=== PATIENT | female | born 2005 | race Caucasian/White ===

== ENCOUNTER 2024-02-28 12:08 | Emergency (ER) | payer OTHER, SELFPAY ==
[2024-02-28 12:11] VITALS: BP 121/75; PULSE 76; TEMP 36.5; O2SAT 97
[2024-02-28 12:14] VITALS: BP 121/75; PULSE 76; TEMP 36.5; O2SAT 97
[2024-02-28 13:35] VITALS: BP 106/63; PULSE 77; RESP 16; O2SAT 98
--- NOTE | 2024-02-28 13:36 | ED.GENADUL_ITS ---
Discharge Plan Disposition Patient Disposition: Home Condition: Good Discharge Details Clinical Impression: Strep pharyngitis, Enlarged tonsils Primary Care Provider: Liza,Local ED Provider: Juliana Nolasco Home Meds and New Rx's Prescriptions: Continued penicillin V potassium 500 mg tablet 500 mg PO Q8H Discharge Instructions Instructions: Sore Throat, Adult ED Additional Instructions: As we discussed, the steroid you are on as well as the antibiotics sound to be appropriate. Referral to ENT has been placed. There are numbers listed below, I encourage you to call to schedule follow-up appointment. I spoke with Dr. Newsome today who advised that you may need a tonsillectomy moving forward. If you develop difficulty breathing, shortness of breath or new/worsening symptom please seek care urgently once again. Referrals: Som Newsome MD [ [facility] STAFF PHYSICIAN] - Discharge Data Discharge Date/Time-TO BE ENTERED AT DEPARTURE: 02/28/24 15:19 HPI General Date/Time Provider Initiated Documentation: 02/28/24 12:16 . Limitations to Documentation: no limitations . Information obtained by: patient and RN notes reviewed . History of Present Illness 18 year old F presents to the emergency department with the chief complaint of Tonsillar swelling, sore throat, described as moderate and similar to prior episodes, Quality is described as burning and aching, and is localized to the mouth. Patient reports no radiation. Patient started experiencing this month(s) and it has been intermittent. No relieving factors improve symptom(s), No exacerbating factors reported . Patient notes no other symptoms.. Patient did receive the following treatments prior to arrival, other (Antibiotics and steroids) Related Data Home Medications ?Medication ?Instructions ?Recorded ?Confirmed penicillin V potassium 500 mg 500 mg PO Q8H 02/28/24 02/28/24 tablet Allergies Allergy/AdvReac Type Severity Reaction Status Date / Time cephalexin Allergy Intermediate Skin Rash Verified 02/28/24 12:14 General Stated Complaint: RespSymp KHOA: 4 Review of Systems Constitutional Constitutional: Reports as per HPI and Denies headache(s) Eyes Eyes: Reports as per HPI, Denies eye discharge and Denies irritation ENT Ears, Nose, Mouth, and Throat: Reports as per HPI and Denies headache(s) Cardiovascular Cardiovascular: Reports as per HPI, Denies chest pain and Denies dyspnea Respiratory Respiratory: Reports as per HPI and Denies dyspnea Gastrointestinal Gastrointestinal: Reports as per HPI, Denies abdominal pain, Denies change in bowel habits, Denies nausea and Denies vomiting Integumentary/Breasts Skin/Breast: Reports as per HPI and Denies rash Neurologic Neurologic: Reports as per HPI and Denies headache(s) Exam Const General: cooperative, healthy appearing, comfortable, no acute distress, well developed and well groomed Nutritional Appearance: average body habitus and well nourished Orientation: alert and awake [facility] Head: normal to inspection, normocephalic and atraumatic Ears: hearing grossly normal bilaterally General nose exam: external nose normal and nares normal Face and sinus: normal facial exam, sinuses nontender and face symmetric Mouth: oral mucosae normal, lip normal, tongue normal, oropharynx normal and moist mucous membranes Teeth and gingiva: dentition normal Throat: uvula midline, abnormal tonsil bilaterally hypertrophy and no peritonsillar masses Eyes General: appearance normal, both eyes and all related structures Neck Neck: normal visual inspection, full ROM, no lymphadenopathy and no meningeal signs Resp Effort & Inspection: normal respiratory effort, able to speak in complete sentences and no respiratory distress Cardio Rate: regular rate Rhythm: regular rhythm Skin General skin exam: no rashes or lesions noted Neuro General: patient alert and patient awake Cognition: normal cognition Speech: speech normal Gait: normal gait Course Vital Signs Vital signs: Vital Signs Temperature 36.5 C 02/28/24 12:11 Pulse 76 02/28/24 12:11 Blood Pressure 121/75 02/28/24 12:11 Pulse Oximetry 97 02/28/24 12:11 Temperature 36.5 C 02/28/24 12:14 Temperature Source Oral 02/28/24 12:14 Pulse 77 02/28/24 13:35 Respiratory Rate 16 02/28/24 13:35 Respiratory Effort Normal, Non-Labored 02/28/24 13:35 Respiratory Depth Normal 02/28/24 13:35 Respiratory Pattern Normal 02/28/24 13:35 Blood Pressure 106/63 02/28/24 13:35 Blood Pressure Mean 77 02/28/24 13:35 Blood Pressure Position Sitting 02/28/24 13:35 Pulse Oximetry 98 02/28/24 13:35 Oxygen Delivery Method Room Air 02/28/24 12:14 Oxygen Flow Rate 0 02/28/24 12:14 Medical Decision Making Patient is a pleasant 18-year-old female presented with chief complaint of sore throat. She reports that she has had issues with sore throat for the past 2 years since having mono. Was recently diagnosed with strep. Has been taking antibiotics and steroids. She reports she has been taking steroids intermittently for the past month, reports that she has been using these most days actually. They have been prescribed to her ENT provider. Sees ENT in [place]. She reports that she has requested to have a tonsillectomy given the recurrent symptoms and that this is not limiting her ability to play sports and engage in school the way she typically does, however they have been hesitant to do so per patient report. Patient is here today really seeking ENT evaluation for possible tonsillectomy given the continued enlarged tonsils and how this they are affecting her ability to perform. She reports that she has been having some difficulty breathing when her mouth is open or she straightened very hard. She has pain with swallowing although she is able to do so. She has not taking the steroids and antibiotics as prescribed. On exam, patient appears nontoxic. She is hemodynamically stable. She does have quite large tonsils. However, she does not appear acutely ill. This sounds to be a very prolonged illness for her, showing potential use. She has no significant lymphadenopathy. Her uvula is midline. No evidence to suggest a peritonsillar abscess or deep space infection extending to the neck. As the patient has been continuing on steroids and antibiotics and yet still having swelling, will consult with ENT to see if they have any further recommendations. Consulted with Dr. Newsome reviewed the case. While he does agree with the patient's want having a tonsillectomy, he is concerned that having it while she is living in a dorm room may not be most appropriate that she may benefit from having the procedure completed at home so that she is able to recover with family. While he is happy to see the patient, he encourages she speak with her ENT in [place] once again as this would be the best physical position for her to begin for continued management and postoperative status. discussed this with the patient. She would prefer to have follow-up here with our ENT specialist and would prefer to not have the surgery completed at home. Referral placed. She will cotninue to encourage hydration, continue with abx and steroids until complete. She will also continue to encourage hydraiton and with supportive care. No indication at this time for emergent complication such as peritonsillar abscess, Jf's, abscess. Strict return precautions were discussed. All of her questions and concerns were addressed and the patient is in agreement this plan. This documentation was generated using [employer] dictation system, please disregard any oddities of phrase or misspellings. Quality:SDOH Health Related Social Needs: No Data to Display PFSH All Active Problems (Updated 02/28/24 @ 14:37 by CHENG Terry) Enlarged tonsils (Acute) Strep pharyngitis (Acute) Social History Smoking/Tobacco Use Status: Never Smoking risk assessment performed?: Yes Alcohol Intake: never Drug use: Never Substance use type: does not use Do you feel safe at home: Yes Do you feel safe in your relationship?: Yes
== END 2024-02-28 15:19 | disposition home or self-care (01) ==
PROVIDERS: Emergency Provider Physician Assistant; Referring Provider Student in an Organized Health Care Education/Training Program
DX: J02.0 Streptococcal pharyngitis (principal); J35.1 Hypertrophy of tonsils
CPT/HCPCS: 87880; 99283

== ENCOUNTER 2024-03-04 20:40 | Emergency (ER) | payer OTHER, SELFPAY ==
--- NOTE | 2024-03-04 20:30 | RT.EKG_ITS ---
APPROVED REPORT Exam: Resting ECG Reason for Exam: chest pain Patient Location: E HR:67 bpm ECG Measurements Heart Rate 67 AXIS UT 144 P 54 QRSd 82 QRS 72 QT 415 T 50 QTc 437 Conclusion Sinus arrhythmia...V-rate 55- 75, variation>10% Atrial premature complex...SV complex w/ short R-R interval I have reviewed and interpreted ECG and agree with software generated interpretation.
[2024-03-04 20:49] VITALS: BP 112/61; PULSE 69; RESP 16; TEMP 36.4; O2SAT 96
--- NOTE | 2024-03-04 21:35 | W.ED.GENAD ---
Discharge Plan Disposition Patient Disposition: Home Condition: Good Discharge Details Clinical Impression: Chest pain due to GERD Primary Care Provider: Liza,Local ED Provider: Miguel A Petit Home Meds and New Rx's Prescriptions: New amoxicillin-pot clavulanate 875-125 mg tablet 1 tab PO BID 7 Days Qty: 14 0RF prednisone 20 mg tablet 20 mg PO DAILY Qty: 42 0RF Rx Instructions: Take 3 tablets daily for 7 days, followed by 2 tablets daily for 7 days, followed by 1 tablet daily for 7 days. pantoprazole [Protonix] 40 mg tablet,delayed release (DR/EC) 40 mg PO DAILY Qty: 30 0RF Discontinued penicillin V potassium 500 mg tablet 500 mg PO Q8H No Action dexmethylphenidate [Focalin XR] 25 mg capsule,ER biphasic 50-50 25 mg PO DAILY Discharge Instructions Instructions: Tonsillectomy, Acid reflux and GERD in adults Additional Instructions: At this time we will continue your course of steroids. We will transition your antibiotic to Augmentin. Additionally out of concern for reflux we recommend taking Tums, Pepto-Bismol or Maalox regularly to help combat this. We will be starting you on Protonix which help reduce irritation in your stomach. Please follow-up closely with Dr. Newsome to see if there is a possibility for expediting your surgical date. For Tylenol and Motrin, you can take 1000 mg of Tylenol every 6 hours and 800 mg of Motrin every 6 hours. These are the maximum doses. If you notice any worsening of your symptoms, or any new symptoms such as vomiting, diarrhea, fever, chills, shortness of breath, chest pain, numbness, weakness, or fainting , please return immediately to the emergency department for reevaluation. Please follow up with your primary care provider as soon as possible for reassessment and reevaluation. As always, it was a pleasure participating in your medical care today. Referrals: Som Newsome MD [ [facility] STAFF PHYSICIAN] - [facility] General Date/Time Provider Initiated Documentation: 03/04/24 21:28. HPI Narrative: 18-year-old female with a past medical history of chronically enlarged tonsils, who is scheduled to have surgery on 13 March for removal of the tonsils, presents today for burning in the chest, and continued swollen tonsils. Of note, patient states that she has had tonsils for months. She most recently has been on prednisone 50 mg for 5 days, today was her last day. She went to an urgent care a few days ago and was started on penicillin. She was strep positive on swab. She was also mono positive, but she had mono a few years ago and this is likely secondary to that. She was at [facility] just yesterday, was seen and evaluated, [facility] ENT was consulted who recommended transitioning from penicillin to Unasyn, a burst of steroids, and then close follow-up for surgical management outpatient. She states that she has been doing well since discharge yesterday, however tonight she had an episode where her tonsils felt swollen and she had a harder time swallowing. This resolved by the time she got to the ER. She takes 200 mg of ibuprofen and 500 mg of Tylenol alternating between the 2 every 6 hours. Additionally she presents tonight because she has burning in her chest. No exertional dyspnea. Denies PE risk factors such as recent long car rides, immobilization, recent surgery, prior history of DVT or PE, family history of PE or DVT, morbid obesity, exogenous estrogen and smoking, hemoptysis, history of cancer. No known cardiac disease or personal history of cardiac disease. No other complaints at this time. Related Data Home Medications ?Medication ?Instructions ?Recorded ?Confirmed dexmethylphenidate 25 mg 25 mg PO DAILY 02/29/24 03/04/24 capsule,extended release [id number] (Focalin XR) amoxicillin 875 mg-potassium 1 tab PO BID 7 days #14 tabs 03/04/24 clavulanate 125 mg tablet pantoprazole 40 mg tablet,delayed 40 mg PO DAILY #30 tabs 03/04/24 release (Protonix) prednisone 20 mg tablet 20 mg PO DAILY #42 tabs 03/04/24 Previous Rx's ?Medication ?Instructions ?Recorded amoxicillin 875 mg-potassium 1 tab PO BID 7 days #14 tabs 03/04/24 clavulanate 125 mg tablet pantoprazole 40 mg tablet,delayed 40 mg PO DAILY #30 tabs 03/04/24 release (Protonix) prednisone 20 mg tablet 20 mg PO DAILY #42 tabs 03/04/24 Allergies Allergy/AdvReac Type Severity Reaction Status Date / Time cephalexin Allergy Intermediate Skin Rash Verified 03/04/24 20:59 red dye Allergy Unknown Verified 03/04/24 20:59 General Stated Complaint: Sorethroat KHOA: 4 Review of Systems All systems reviewed & are unremarkable except as noted in HPI and below Exam Narrative Exam Narrative: 1.Const: Well-nourished, Well-developed, appearing stated age 2.Eyes: PERRL, no conjunctival injection, and symmetrical lids. 3.ENT: Atraumatic external nose and ears. Moist MM. Neck: Symmetric, trachea midline, No thyromegaly. No cervical lymphadenopathy. Tonsils are currently grade 3+ to 4. No hot potato voice. No drooling. No stridor. No evidence of Ludewig's angina 4.CVS: +S1/S2, Peripheral pulses 2+ and equal in all extremities. Brisk capillary refill in all extremities. 5.RESP: Unlabored respiratory effort. Clear to auscultation bilaterally. No wheezes rales or rhonchi 6.GI: Soft, Nontender/Nondistended, No hepatosplenomegaly. No guarding or rebound. 7.MSK: Normocephalic/Atraumatic, Extremities w/o deformity or ttp No cyanosis or clubbing, Normal movement of all extremities 8.Skin: Warm, Dry. No rashes or lesions. 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 Sensation grossly intact, no focal neurologic deficits. 10.Psych: (AAO) x3. Appropriate mood and affect Course Vital Signs Vital signs: Vital Signs Temperature 36.4 C 03/04/24 20:49 Pulse 69 03/04/24 20:49 Respiratory Rate 16 03/04/24 20:49 Blood Pressure 112/61 03/04/24 20:49 Pulse Oximetry 96 03/04/24 20:49 Temperature 36.4 C 03/04/24 20:49 Temperature Source Oral 03/04/24 20:49 Pulse 69 03/04/24 20:49 Respiratory Rate 16 03/04/24 20:49 Respiratory Effort Normal 03/04/24 21:00 Blood Pressure 112/61 03/04/24 20:49 Blood Pressure Position Sitting 03/04/24 20:49 Pulse Oximetry 96 03/04/24 20:49 Oxygen Delivery Method Room Air 03/04/24 20:49 Oxygen Flow Rate 0 03/04/24 20:49 Pain Level 6 03/04/24 20:49 Medical Decision Making 18-year-old female with a past medical history of chronically enlarged tonsils, who is scheduled to have surgery on 13 March for removal of the tonsils, presents today for burning in the chest, and continued swollen tonsils. Of note, patient states that she has had tonsils for months. She most recently has been on prednisone 50 mg for 5 days, today was her last day. She went to an urgent care a few days ago and was started on penicillin. She was strep positive on swab. She was also mono positive, but she had mono a few years ago and this is likely secondary to that. She was at [facility] just yesterday, was seen and evaluated, [facility] ENT was consulted who recommended transitioning from penicillin to Unasyn, a burst of steroids, and then close follow-up for surgical management outpatient. She states that she has been doing well since discharge yesterday, however tonight she had an episode where her tonsils felt swollen and she had a harder time swallowing. This resolved by the time she got to the ER. She takes 200 mg of ibuprofen and 500 mg of Tylenol alternating between the 2 every 6 hours. Additionally she presents tonight because she has burning in her chest. No exertional dyspnea. Denies PE risk factors such as recent long car rides, immobilization, recent surgery, prior history of DVT or PE, family history of PE or DVT, morbid obesity, exogenous estrogen and smoking, hemoptysis, history of cancer. No known cardiac disease or personal history of cardiac disease. No other complaints at this time. Exam demonstrates grade 3+ to 4 tonsils, no stridor, no drooling, no hot potato voice. No signs of respiratory distress stridor Ludewig's angina or any other concerning etiologies or abnormalities. Tonsils are enlarged but certainly no evidence of needed emergent surgical intervention. These intermittent episodes, as well as the patient's multiple emergent evaluations over the last week certainly increases the concern that this does need continued nonemergent surgical management but hopefully sooner rather than later. Today was her last day of steroids, and I do feel that cessation of steroids might be certainly complicating especially as she still had continued episodes even while on steroids. We will do a continued course with a taper as she has had the 50 mg burst. She states that she felt there was notable improvement after the Unasyn treatment that she received at [facility] with multiple doses there. We will transition her to Augmentin until she is able to follow-up with ENT. I do not see evidence of a severe active infection, but with these repeat episodes I do feel that additional caution is indicated at this time. I had a long discussion with the patient regarding red flags which would merit prompt return and that could represent the need for emergent surgical intervention and she understands. Additionally we gave a GI cocktail which certainly improved the patient's GERD like symptoms. Symptoms are inconsistent with ACS. EKG benign. Symptoms inconsistent with PE clinically. Patient will be discharged home. I have extensively reviewed the treatment plan and discharge instructions with the patient. I have addressed all patient concerns at this time. The patient was made aware of what symptoms to monitor for that would warrant a return to the emergency department. Discussed the plan with the patient, they demonstrate verbal understanding and agreement with our assessment and plan at this time. The documentation in this chart was dictated using [employer] dictation software. Please excuse any dictation errors. Quality:SDOH Health Related Social Needs: No Data to Display PFSH All Active Problems Chest pain due to GERD (Acute) Enlarged tonsils (Acute) Strep pharyngitis (Acute) Surgical History H/O adenoidectomy In [place] Social History Smoking/Tobacco Use Status: Never Smoking risk assessment performed?: Yes Alcohol Intake: never Drug use: Never Substance use type: does not use Do you feel safe at home: Yes Do you feel safe in your relationship?: Yes
[2024-03-04] MEDS: Amox. 875/Clav. 125, 2 TABS/BTL 1 TAB PO (21:36)
== END 2024-03-04 21:49 | disposition home or self-care (01) ==
PROVIDERS: Emergency Provider Student in an Organized Health Care Education/Training Program
DX: K21.9 Gastro-esophageal reflux disease without esophagitis (principal); J35.1 Hypertrophy of tonsils
CPT/HCPCS: 93005; 99283; 93010; 99284

== ENCOUNTER 2024-03-13 06:18 | Day surgery (SDC) | payer OTHER, SELFPAY ==
[2024-03-13] VITALS (29 sets, daily range): BP systolic 106–131; BP diastolic 45–87; PULSE 46–76; RESP 11–22; TEMP 36.3–36.6; O2SAT 94–100; BMI 27.5
--- NOTE | 2024-03-13 06:27 | ANES.PREOP_ITS ---
General Info Date of Service Date Performed: 03/13/24 Height: 5 ft 7 in Weight: 79.8 kg Body Mass Index (BMI): 27.5 Surgical Procedure: Operation Date: 03/13/24 07:40 Proposed Procedure Side Surgeon p Tonsillectomy & Adenoidectomy Som Newsome MD Meds Allergies and Home Medications Allergies Allergy/AdvReac Type Severity Reaction Status Date / Time cephalexin Allergy Intermediate Skin Rash Verified 03/13/24 06:44 red dye Allergy Skin Rash Verified 03/13/24 06:44 Home Medication ?Medication ?Instructions ?Recorded dexmethylphenidate 25 mg 25 mg PO DAILY 02/29/24 capsule,extended release [id number] (Focalin XR) pantoprazole 40 mg tablet,delayed 40 mg PO DAILY #30 tabs 03/04/24 release (Protonix) Current Visit Medications: Current Medications Generic Name Dose Route Start Last Admin Trade Name Freq PRN Reason Stop Dose Admin Ringer's Solution 1,000 mls @ 75 mls/hr 03/13/24 06:00 IV 03/13/24 23:59 INFUSION CARIE Tranexamic Acid/Sodium Chloride 1,000 mg in 100 mls @ 600 mls/hr 03/13/24 06:00 IVPB 03/13/24 23:59 PREOP CARIE Clindamycin Phosphate/Dextrose 900 mg in 50 mls @ 50 mls/hr 03/13/24 06:00 Cleocin In D5w IVPB 03/13/24 23:59 PREOP CARIE IV Miscellaneous Supplies 1 each 03/13/24 06:00 Iv Access IV 03/13/24 23:59 DIRECTED CARIE Sodium Chloride 0 ml 03/13/24 06:00 Normal Saline Flush 10 Ml Syr IV 03/13/24 23:59 PRN PRN Sodium Chloride 0 ml 03/13/24 06:00 Normal Saline 10 Ml Vial IJ 03/13/24 23:59 DIRECTED PRN Sterile Water 0 ml 03/13/24 06:00 Water,Injection,Sterile 10 Ml Vial IJ 03/13/24 23:59 DIRECTED PRN PFSH Active Problems Active Problems: Problem Status Onset Code Chest pain due to GERD Acute K21.9, R07.9 Enlarged tonsils Acute J35.1 Strep pharyngitis Acute J02.0 Surgical History Surgical History Hx of knee surgery x2 H/O adenoidectomy In [place] Tobacco Smoking/Tobacco Use Status: Never Alcohol Alcohol Intake: never Substance Use Substance use: Never Substance use type: does not use Vital Signs and Lab Results Vital Signs Most Recent Vital Signs in EMR: Temp Pulse Resp BP Pulse Ox 36.6 C 54 L 16 115/68 98 03/13/24 06:25 03/13/24 06:25 03/13/24 06:25 03/13/24 06:25 03/13/24 06:25 Lab Results Blood Type / Crossmatch: No Data to Display Complete Blood Count: No Data to Display Complete Metabolic Panel: No Data to Display Liver Function Panel: No Data to Display Coagulation Panel: No Data to Display Cardiac Panel: No Data to Display Arterial Blood Gas: No Data to Display Venous Blood Gas: No Data to Display Pancreas Panel: No Data to Display Thyroid Panel: No Data to Display Infectious Disease: No Data to Display Blood Cultures: No Data to Display Toxicology Panel: No Data to Display Panel: No Data to Display Anesthesia Assessment and Plan Anesthesia History Personal History: No History of Anesthesia Complications Family History: No Family History of Anesthesia Complications Exercise Tolerance Exercise Tolerance: Metabolic Equivalents>4 Cardiac & Pulmonary Exam Cardiac Exam: Normal S1/S2 Heart Sounds Pulmonary Exam: Clear Bilateral Breath Sounds Implantable Cardiac Device Does patient have a Pacemaker or an ICD?: No Airway Exam Known Difficult Airway: No Mallampati Class: 3 Mouth Opening: Normal (> 3cm) Thyromental Distance: Greater than 3 cm Neck Range of Motion: Full ROM Neck Circumference: Normal Teeth Condition: Normal Dentition ASA Classification ASA Score: ASA 2 Emergency Case?: No NPO Status NPO Status: NPO Clears >2 hours, Solids >8 hours Status Status: Negative HCG Anesthesia Plan Resuscitation Status: Full Code Anesthesia Technique: General Anesthesia Airway Planned: Endotracheal Tube Monitors Used: Standard Monitors Preoperative Comments:: 18 yo female for tonsillectomy. Recent ER visit for them, antibiotics and oral steroid given. Sig PMHx: RAD (albuterol with exertion), GERD (not an issue), ADHD (dexmethylphenidate), never smoker. EKG: sinus, PACs.
--- NOTE | 2024-03-13 06:54 | PDOC.DSDIS_ITS ---
Date of service: 03/13/24 Time of Service: 06:56 Discharge Plan Disposition Patient Disposition: Home Condition: Good Discharge Details Reason For Visit: Tonsillectomy Attending Provider: Som Newsome Primary Care Provider: No,Local Home Meds and New Rx's Prescriptions: No Action dexmethylphenidate [Focalin XR] 25 mg capsule,ER biphasic 50-50 25 mg PO DAILY pantoprazole [Protonix] 40 mg tablet,delayed release (DR/EC) 40 mg PO DAILY Qty: 30 0RF Patient Comments: Pt states not taking Discharge Instructions Additional Instructions: My cell phone number is [phone]. Please call with any questions or concerns. 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 She may return to sports without restriction on 03/27/2024. Stand Alone Forms: ENT- T&A InstrDavid Newsome Referrals: Som Newsome MD [ [facility] STAFF PHYSICIAN] - (1 month, please call for appointment prior to patient's departure if the appointment is already not made) Discharge Orders Discharge Orders: Discharge Order (Routine); Ordered 03/13/24 Ordered By: Som Newsome
--- NOTE | 2024-03-13 06:56 | W.PM.OP ---
Date of service: 03/13/24 Time of Service: 08:22 Operative Note Operative Note DATE OF PROCEDURE: 03/13/24 PRE-OP DIAGNOSIS: Chronic tonsillitis, tonsillar hypertrophy POST-OP DIAGNOSIS: same PROCEDURE: Tonsillectomy SURGEON: Som Newsome ANESTHESIA TYPE: General LMA/ETT Refer to Anesthesia Record ESTIMATED BLOOD LOSS: 20 PATHOLOGY: other (Tonsils) COMPLICATIONS: None Patient was transported to: PACU Patient's condition: stable Indications: Patient with chronic tonsillitis and tonsillar hypertrophy with obstructive symptoms. Options were explained to the family regarding further management. They elected to undergo the above procedure. Consent was filled out and signed prior to the procedure. H&P was completed. H&P was reviewed. All questions were answered. Risks of narcotics were reviewed. They still wish to proceed. Findings: 4+ tonsils, atrophic adenoids, palate intact to inspection and palpation Procedure Description: After obtaining an adequate level of general endotracheal anesthesia the patient was positioned in the supine position and prepped and draped in appropriate fashion. A Yadiel Catracho mouthgag was carefully introduced into the oral cavity and opened revealed a soft and hard palate which were examined revealing no overt evidence of an occult cleft palate. He each tonsil was pulled medially and posteriorly and 0.5% Marcaine with 1/100,000 epinephrine was injected in the submucosal plane around each tonsil. A 12 blade was then used to incise mucosa along superior edge of each tonsil and a Jarad elevator used to disarticulate the tonsil from the superior tonsillar fossa. A Diamond blade was then used to carefully strip the tonsil free from the tonsillar fossa down to the inferior pole at which point in time a tonsillar snare was used to amputate the tonsil from the tonsillar fossa. Following this, electrocautery suction tip catheter was set on 15 W coagulation was used to achieve hemostasis within the tonsillar beds. Once been accomplished, Valsalva was performed revealing no further bleeding. Cardiovis mouthgag was relaxed and reopened revealing no further bleeding. Cardiovis mouthgag was relaxed and removed revealing no damage to the dentition and the patient was awakened and extubated by anesthesia and taken the recovery room in stable condition. I was present throughout the entire case.
[2024-03-13] MEDS: Lactated Ringers 500 ML 30 ML IV (07:00)
[2024-03-13] MEDS: CLINDAMYCIN 900 MG/50 ML BAG 50 MG IVPB (07:06)
[2024-03-13] MEDS: TRANEXAMIC ACID/SOD. CHL. 1,000 MG/100 ML BAG 600 MG IVPB (07:22)
[2024-03-13] MEDS: Bupivacaine 0.5% Pres-Free W/EPI 30 ML VIAL (07:36)
--- NOTE | 2024-03-13 07:45 | TONSIL_PTH ---
PATIENT: Cornelio Quintanilla LOC: [facility] U#:[id number] AGE/SX: 18/F ROOM: RE03/13/[address]: Som Newsome MD : 2005 BED: DIS: 03/13/2024 SPEC #: [id number] RECD: 03/13/24 12:44 STATUS: BETHANY REQ #: [id number] REGINO: 03/13/24 07:[address]: Som Newsome DEPT: Surgical Specimen RECD BY: Oriana Evans ENTERED: 03/13/24 12:46 SP TYPE: TONSIL OTHR DR: No Local Tissues: 1 - TONSIL AGE 17 & OVER 2 - TONSIL AGE 17 & OVER Procedures: GROSS AND MICRO LEVEL 3 Comments: [id number]
--- NOTE | 2024-03-13 08:45 | W.ANESPOSTOP ---
Postoperative Evaluation Date, Time and Location Date Performed: 03/13/24 Time Performed: 08:45 Patient Location: PACU Vital Signs Most Recent Imported Vital Signs: Most Recent Vital Signs Temp Pulse Resp BP Pulse Ox 36.4 C L 59 L 12 122/76 100 03/13/24 08:38 03/13/24 08:36 03/13/24 08:36 03/13/24 08:36 03/13/24 08:36 Pain Score Most Recent Pain Score: Most Recent Pain Score Pain Level 0 03/13/24 08:38 Assessment Mental Status: Arousable with meaningful communication Airway and Respiratory Function: Patent airway with normal (patient baseline) respiratory exam Cardiovascular Function: Hemodynamically Stable Hydration Status: Adequately Hydrated Nausea & Vomiting: No Nausea or Vomiting Pain: Pain is tolerable per patient Peripheral Nerve Block: Patient did not receive a nerve block
[2024-03-13] MEDS: Ibuprofen 100 MG/5 ML CUP 400 MG PO (11:36)
== END 2024-03-13 11:50 | disposition home or self-care (01) ==
PROVIDERS: Visit Provider Otolaryngology
PROC: (CPT 42826; principal; 2024-03-13 07:30)
DX: J35.1 Hypertrophy of tonsils (principal)
CPT/HCPCS: 42826; 81025; 88304; J0131; J0737; J1100; J2250; J2405; J2704; J3010

== ENCOUNTER 2024-04-26 09:48 | Emergency (ER) | payer OTHER, SELFPAY ==
[2024-04-26 09:47] VITALS: BP 157/105; PULSE 63; RESP 16; TEMP 36.5; O2SAT 98
--- OUTSIDE RECORDS SUMMARY | 2024-04-26 10:12 | XMS_ITS | Encounter Summary ---
Author Organization [facility] Address [address] [place] [address] Care Team Providers Care Custom Decorating Consultant Name Role Phone Unknown, Provider Primary Care Provider Unava ilable Encounter Details Date Type Department Care Team (Late st Contact Info) Description 03/04/2024 Lab Requisition [facility] Pathology & Laboratory Medicine - [facility] [address] [place] [address] Outr Resulting Lab, Provider Social History Tobacco Use Types Packs/Day Years Used Date Smoking Tobacco: Never Assessed Comments Unknown Sex and Gender Information Value Date Recorded Sex Assigned at Not on file Legal Sex Female 12:15 EDT Gender Identity Not on file Sexual Orientation Not on file documented as of this encounter Plan of Treatment Not on file documented as of this encounter Procedures Procedure Name Priority Date/Time Associated Diagnosis Comments AL-HARPER PANEL Routine 03/03/2024 17 :59 EDT documented in this encounter Results * (ABNORMAL) AL-HARPER PANEL (03/03/2024 17:59 EDT) EBV VCA IgM, Antibody Negative Negative 03/07/2024 10:23 EDT [facility] Comment:Absence of detectabl e VCA IgM antibodies. EBV VCA IgG, Antibody Positive(A) Negative 03/07/2024 10:23 [facility] Comment:Presence of detectab le VCA IgG antibodies. EBNA IgG Antibody Positive(A) Negative 2023 10:23 [facility] Comment:Presence of detectab le EBNA IgG antibodies. EBV Interpretation Results would indicate past infection with Al-Harper virus 03/07/2024 10:23 [facility] Blood VENOUS BLOOD / Unknown 03/03/2024 17:59 EDT 03/05/2024 22:07 EDT us Provider Outr Resulting Lab IMMUNOLOGY AND SEROL OGY ORDERABLES Final Result [facility] [address] [place] [id number] documented in this encounter Visit Diagnoses Not on filedocumented in this encounter Care Teams Custom Decorating Consultant Relationship Specialty Start Date End Date Unknown, Provider, PCP - General 02/07/24 documented as of this encounter
--- OUTSIDE RECORDS SUMMARY | 2024-04-26 10:12 | XMS_ITS | Encounter Summary ---
Author Organization [facility] Address [address] [place] [address] Care Team Providers Care Bush Hog Operator Name Role Phone Unknown, Provider Primary Care Provider Unava ilable Encounter Details Date Type Department Care Team (Late st Contact Info) Description 03/14/2024 Lab Requisition [facility] Pathology & Laboratory Medicine - [facility] [address] [place] [address] Som Newsome MD [address] [place] [address] [phone] Encounter for other general examination Social History Tobacco Use Types Packs/Day Years [...] Procedure Name Priority Date/Time Associated Diagnosis Comments SURGICAL PATHOLOGY Today 03/13/2024 7: 45 EST Encounter for other general examination documented in this encounter Results * SURGICAL PATHOLOGY (03/13/2024 7:45 EST) Note to Patient The following pathology results have been interpreted by your pathologist and may be available to you before your health provider has had the opportunity to review them. Please allow time for your provider to receive these results and explore management options, if applicable. 03/16/2024 8:45 EST [facility] Final Diagnosis A. TONSIL, RIGHT, TONSILECTOMY: - Tonsil with reactive follicular hyperplasia. B. TONSIL, LEFT, TONSILECTOMY: - Tonsil with reactive follicular hyperplasia. 03/16/2024 8:45 EST [facility] Attestation By the signature below, the attending physician certifies that they have 1) personally conducted a gross and/or microscopic examination of the described specimen(s), and/or personally interpreted the results of laboratory testing of the described specimen(s), and 2) personally rendered or confirmed the above diagnosis. 03/16/2024 8:45 [facility] at 0845 Clinical History Enlarged tonsils 03/16/2024 8:45 [facility] Gross Description A. Received in formalin labelled with proper patient identification (initials W, R) and tonsil, right is a 3.6 x 2.4 x 1.6 cm ovoid palatine tonsil. The mucosal surface is smooth and pink-ware. Sectioning reveals lobulated, ware cut surfaces. No obvious masses identified. One scheduling representative section is submitted in A1. B. Received in formalin labelled with proper patient identification (initials W, R) and left tonsil is a 3.8 x 3.2 x 1.4 cm irregular palatine tonsil. The mucosal surface smooth and ware-white. Sectioning reveals a lobulated, ware cut surfaces. No obvious masses identified. One scheduling representative section is submitted in B1. CHENG QUIÑONEZ(ASCP) 03/14/2024 10:00 03/16/2024 8:45 [facility] Performing Lab [facility] 03/16/2024 8:45 [facility] Scanned Images 03/16/2024 8:45 [facility] Tissue SPECIMEN FROM TONSIL / Unknown 03/13/2024 7:45 EST 03/14/2024 9:00 EST Tissue specimen (specimen) SPECIMEN FROM TONSIL / Unknown 03/13/2024 7:45 EST 03/14/2024 9:00 EST us Som Newsome MD PATHOLOGY ORDERABLES Final Resul t [facility] [address] [place] [address] [phone] documented in this encounter Visit Diagnoses Diagnosis Encounter for other general examination documented in this encounter Care Teams Bush Hog Operator Relationship Specialty Start Date End Date Unknown, Provider, PCP - General 02/07/24 documented as of this encounter
--- OUTSIDE RECORDS SUMMARY | 2024-04-26 10:12 | XMS_ITS | Continuity of Care Document ---
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 Name Role Phone Outside, Provider Primary Care Physician Encounter [facility] Date(s): 03/03/24 - 03/04/[address] [address] Encounter Diagnosis Airway obstruction(Discharge Diagnosis) - 03/03/24 Strep pharyngitis(Discharge Diagnosis) - 03/03/24 Enlarged tonsils(Discharge Diagnosis) - 03/04/24 Monospot test positive(Discharge Diagnosis) - 03/04/24 ADHD(Discharge Diagnosis) - 03/03/24 Discharge Disposition: Home or Self Care Attending Physician: Alfie Curran DO Admitting Physician: Scott Sandra PA-C Allergies, Adverse Reactions, Alerts Substance Criticality Severity Reaction Reaction Severity Status Keflex Unable to assess criticality Unknown Active Assessment and Plan Extracted from: Title:Discharge Note Author:Alfie Curran DO Date:03/04/24 Discharge Plan 1.??Airway obstruction??J98.8 2.??Strep pharyngitis??J02.0 3.??Enlarged tonsils??J35.1 4.??Monospot test positive??B27.90 5.??ADHD??F90.9 Orders: Diet Order, 03/04/24 7:37:00 EDT, Custom (See Special Instructions), soft diet Alexandria-Harper Virus Profile, S SALAZAR, Blood, Add On, 03/04/24 8:20:00 EDT, Once, Lab Collect Procalcitonin, Blood, Add On, 03/04/24 9:12:00 EDT, Once, Lab Collect Follow Up With When Contact Information Follow up with primary care provider Within 1 month Additional Instructions: Extracted from: Title:H & P Author:Scott Sandra PA-C Date: 03/03/24 1.??Airway obstruction??J98. 8 Airway obstruction likely multifactorial with known enlarged tonsils, as well as strep pharyngitis and new mononucleosis diagnosis Was treated with high dose corticosteroids IV in the emergency department with improved the swelling of bilateral tonsils Will observe patient overnight due to the severity of shortness of breath and tonsillar enlargement Continue supportive care?? Full liquid diet ordered, patient tolerating liquids in the emergency department?? Continue to monitor pulse oximetry?? Continue to monitor closely ? 2.??Strep pharyngitis??J02.0 Was recently diagnosed with strep throat at [facility] and prescribed penicillin?? Likely penicillin was not effective for strep as she continues to be positive today in the emergency department Will continue with 3g IV Unasyn q6 hours?? Continue pain control and fever control as needed with tylenol and ibuprofen? 3.??Mononucleosis syndrome??B27.90 Positive for mono in the emergency department?? 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 4.??ADHD??F90.9 Chronic?? Continue Focalin as prescribed.?? Orders: Sodium Chloride 0.9% 1,000 mL, Total Volume (mL): 1,000, 1,000 mL, Soln-IV, IV, 75 mL/hr, Start Date: 03/03/24 22:47:00 EDT, Populate Charting Weight From Order PSO Place in Observation, Observation, Observation, Alfie Curran DO, 03/03/24 21:57:00 EDT, 03/03/24 21:57:00 EDT, 03/03/24 21:57:00 EDT, 1 midnight or less Extracted from: Title:ED Provider Note Author:Sage Cesar MD Date:03/03/24 1.??Airway obstruction??J98. 8 2.??Strep pharyngitis??J02.0 3.??Mononucleosis syndrome??B27.90 4.??Enlarged tonsils and adenoids??J35.3 Orders: Unasyn, 3 g = 1 EA, IV Piggyback, Powder-Inj, every 6 hr, Antibiotic Indication Other (specify in order comments), First Dose: 03/03/24 18:43:00 EDT, STAT, 200 mL/hr .Manual Differential ([facility]), Blood, Stat, Collected, 03/03/24 17:59:55 EDT, Once, Nurse collect, [id number] Diagnostic Tests Pending * Alexandria-Harper Virus Profile, S VALDERS 03/02/24 * Generic Orderable [facility]/VALDERS 03/03/24 Functional Status 03/04/24 ADLs Independent 03/03/24 Anti-Embolism Device Activity: Applied Anti-Embolism Site Condition: No complic ations 03/03/24 Living Situation Home independently Special Services and Community Resources None Family Member Travel History No recent t ravel Recent Travel History No recent travel Other exposure to Infectious Disease Non e Medications Focalin 0 Refill(s) Start Date: 03/03/24 Status: Ordered penicillin V potassium 500 mg oral tablet 500 mg = 1 tab, Oral, every 8 hr, # 30 tab, 0 Refill(s) Start Date: 03/03/24 Stop Date: 03/13/24 Status: Ordered Mental Status 03/03/24 Eye Opening Response Heather Spontaneous ly Best Verbal Response Heather Oriented Best Motor Response Heather Obeys comman ds Heather Coma Score 15 Problem List Condition Confirmation Course Effective Dates Status Health St atus Informant ADHD Confirmed Active Enlarged tonsils Confirmed Active Results Laboratory List Name Date .Manual Differential ([facility]) 03/04/24 Basic Metabolic Panel 03/04/24 CBC w/o Diff 03/04/24 Magnesium Level 03/04/24 Procalcitonin 03/04/24 SARS-CoV-2 (COVID-19) RNA (ID Now) 03/03 CBC w/ Diff 03/03/24 Mononucleosis Screen 03/03/24 Strep A (ID NOW) 03/03/24 .Manual Differential ([facility]) 03/03/24 Basic Metabolic Panel (BMP) 03/03/24 Most recent to oldest [Reference Range]: 1 2 WBC [5.0-10.0 x10^3/mcL] 16.2 x10^3/mcL *HI* (03/04/24 7:20 AM) 19.4 x10^3/mcL *HI* (03/03/24 5:59 PM) RBC [4.1-5.3 x10^6/mcL] 4.1 x10^6/mcL (03/04/24 7:20 AM) 4.2 x10^6/mcL (03/03/24 5:59 PM) Segs Man [40-75 %] 91 % *HI* (03/04/24 7:20 AM) 85 % *HI* (03/03/24 5:59 PM) Lymph Man [20-50 %] 7 % *LOW* (03/04/24 7:20 AM) 10 % *LOW* (03/03/24 5:59 PM) [place] Man [2-15 %] 2 % (03/04/24 7:20 AM) 5 % (03/03/24 5:59 PM) Eos Man [1-6 %] 0 % *LOW* (03/04/24 7:20 AM) 0 % *LOW* (03/03/24 5:59 PM) BUN [7-18 mg/dL] 12 mg/dL (03/04/24 7:20 AM) 14 mg/dL (03/03/24 5:59 PM) Glucose Level [74-106 mg/dL] 131 mg/dL *HI* (03/04/24 7:20 AM) 85 mg/dL (03/03/24 5:59 PM) Potassium Level [3.5-5.1 mmol/L] 4.1 mmo l/L (03/04/24 7:20 AM) 3.8 mmol/L (03/03/24 5:59 PM) MCV [80.0-96.0 fL] 85.1 fL (03/04/24 7:20 AM) 84.9 fL (03/03/24 5:59 PM) RBC Morph Normal (03/04/24 7:20 AM) Normal (03/03/24 5:59 PM) MCHC [31.0-35.0 g/dL] 31.6 g/dL (03/04/24:20 AM) 32.5 g/dL (03/03/24 5:59 PM) Sodium Level [136-145 mmol/L] 139 mmol/L (03/04/24:20 AM) 142 mmol/L (03/03/24 5:59 PM) Hct [37.0-47.0 %] 34.8 % *LOW* (03/04/24: AM) 36.0 % *LOW* (03/03/24 5:59 PM) Calcium Level [8.5-10.1 mg/dL] 9.0 mg/dL (03/04/24: AM) 9.7 mg/dL (03/03/24 5:59 PM) MCH [26.0-32.0 pg] 26.9 pg (03/04/24: AM) 27.6 pg (03/03/24:59 PM) Magnesium Level [1.8-2.4 mg/dL] 1.9 mg/d L (03/04/24:20 AM) Hgb [12.0-16.0 g/dL] 11.0 g/dL *LOW* (03/04/24: AM) 11.7 g/dL *LOW* (03/03/24 5:59 PM) Band Man [0-5 %] 0 % (03/04/24:20 AM) 0 % (03/03/24 5:59 PM) Platelets [130-450 x10^3/mcL] 375 x10^3/ mcL (03/04/24:20 AM) 390 x10^3/mcL (03/03/24 5:59 PM) CO2 [21-32 mmol/L] 24 mmol/L (03/04/24:20 AM) 28 mmol/L (03/03/24 5:59 PM) eGFR Non-AA [>=60] 127 (03/04/24 7:20 AM) 86 (03/03/24 5:59 PM) eGFR AA [>=60] 127 (03/04/24 7:20 AM) 86 (03/03/24 5:59 PM) Chloride Level [98-107 mmol/L] 103 mmol/ L (03/04/24 7:20 AM) 102 mmol/L (03/03/24 5:59 PM) Procalcitonin [0.00-0.50 ng/mL] <0.15 ng /mL (03/04/24 6:59 AM) RDW-CV [11.5-14.5 %] 12.7 % (03/04/24 7:20 AM) 12.8 % (03/03/24 5:59 PM) Slide Review Man Diff (03/03/24 5:59 PM) Abs Neut Man 14.7 x10^3/mcL *NA* (03/04/24 7:20 AM) 16.5 x10^3/mcL *NA* (03/03/24 5:59 PM) Strep A -IDNOW [Not Detected] Detected *ABN* (03/03/24 5:59 PM) Creatinine Level [0.55-1.02 mg/dL] 0.70 mg/dL (03/04/24 7:20 AM) 0.97 mg/dL (03/03/24 5:59 PM) SARS-CoV-2 (COVID-19) RNA (I D Now) [Not Detected] Not Detected (03/03/24 10:20 PM) Plt Estimation [Adequate] Adequate (03/04/24 7:20 AM) Baso Man [0-1 %] 0 % (03/04/24 7:20 AM) 0 % (03/03/24 5:59 PM) Mononucleosis Screen [Negative] Positive *ABN* (03/03/24 5:59 PM) Vital Signs Most recent to oldest [Reference Range]: 1 2 3 Temperature Temporal Artery [36-38 Deg C] 36.1 Deg C (03/04/24 6:55 AM) 36.7 Deg C (03/03/24 10:52 PM) 37.0 Deg C (03/03/24 5:35 PM) Peripheral Pulse Rate [60-100 bpm] 44 bpm *LOW* (03/04/24 6:55 AM) 49 bpm *LOW* (03/04/24 5:46 AM) 56 bpm *LOW* (03/03/24 10:52 PM) Heart Rate Monitored [60-100 bpm] 93 bpm (03/03/24 6:04 PM) Respiratory Rate [12-24 br/min] 18 br/min (03/04/24 11:53 AM) 20 br/min (03/04/24 6:55 AM) 16 br/min (03/04/24 5:46 AM) Blood Pressure [90-120/60-80 mmHg] 108/68mmHg (03/04/24 6:55 AM) 119/67mmHg (03/03/24 10:52 PM) 120/82mmHg (03/03/24 5:35 PM) Mean Arterial Pressure, Cuff [65-140 mmHg] 95 mmHg (03/03/24 5:35 PM) Mean Arterial Pressure Cuff 81 mmHg (03/04/24 6:55 AM) 83 mmHg (03/03/24 10:52 PM) Weight 76.2 kg (03/04/24 11:49 AM) 76.2 kg (03/03/24 11:07 PM) 76.2 kg (03/03/24 11:01 PM) Weight Dosing 76.200 kg (03/03/24 11:01 PM) Weight Estimated 70.3 kg (03/03/24 5:35 PM) Height 170 cm (03/03/24:07 PM) 170 cm (03/03/24 11:01 PM) BSA Measured 1.9 m2 (03/03/24 11:01 PM) BSA Estimated 0 m2 (03/03/24 11:01 PM) Body Mass Index 26.37 kg/m2 (03/03/24 11:07 PM) 26.37 kg/m2 (03/03/24 11:01 PM) Body Mass Index Estimated 24.33 kg/m2 (03/03/24:35 PM) Height/Length Estimated 170 cm (03/03/24 5:35 PM) Social History Social History Type Response Tobacco Never tobacco user T obacco Use:. Sex Sex Representation Female (finding) Hospital Discharge Instructions Patient Education 03/04/2024 07:49:14 Pharyngitis Pharyngitis Pharyngitis is inflammation of the throat (pharynx). It is a very common cause of sore throat. Pharyngitis can be caused by a bacteria, but it is usually caused by a virus. Most cases of pharyngitis get better on their own without treatment. What are the causes? This condition may be caused by: ??? Infection by viruses (viral). Viral pharyngitis spreads easily from person to person (is contagious) through coughing, sneezing, and sharing of personal items or utensils such as cups, forks, spoons, and toothbrushes. ??? Infection by bacteria (bacterial). Bacterial pharyngitis may be spread by touching the nose or face after coming in contact with the bacteria, or through close contact, such as kissing. ??? Allergies. Allergies can cause buildup of mucus in the throat (post-nasal drip), leading to inflammation and irritation. Allergies can also cause blocked nasal passages, forcing breathing throughthe mouth, which dries and irritates the throat. What increases the risk? You are more likely to develop this condition if: ??? You are 5???24 years old. ??? You are exposed to crowded environments such as daycare, school, or dormitory living. ??? You live in a cold climate. ??? You have a weakened disease-fighting (immune) system. What are the signs or symptoms? Symptoms of this condition vary by the cause. Common symptoms of this condition include: ??? Sore throat. ??? Fatigue. ??? Low-grade fever. ??? Stuffy nose (nasal congestion) and cough. ??? Headache. Other symptoms may include: ??? Glands in the neck (lymph nodes) that are swollen. ??? Skin rashes. ??? Plaque-like film on the throat or tonsils. This is often a symptom of bacterial pharyngitis. ??? Vomiting. ??? Red, itchy eyes (conjunctivitis). ??? Loss of appetite. ??? Joint pain and muscle aches. ??? Enlarged tonsils. How is this diagnosed? This condition may be diagnosed based on your medical history and a physical exam. Your health careprovider will ask you questions about your illness and your symptoms. A swab of your throat may be done to check for bacteria (rapid strep test). Other lab tests may also be done, depending on the suspected cause, but these are rare. How is this treated? Many times, treatment is not needed for this condition. Pharyngitis usually gets better in 3???4 days without treatment. Bacterial pharyngitis may be treated with antibiotic medicines. Follow these instructions at home: Medicines ??? Take uonq-aag-ayezgiw and prescription medicines only as told by your health care provider. ??? If you were prescribed an antibiotic medicine, take it as told by your health care provider. Donot stop taking the antibiotic even if you start to feel better. ??? Use throat sprays to soothe your throat as told by your health care provider. ??? Children can get pharyngitis. Do not give your child aspirin because of the association with Maximiliano's syndrome. Managing pain To help with pain, try: ??? Sipping warm liquids, such as broth, herbal tea, or warm water. ??? Eating or drinking cold or frozen liquids, such as frozen ice pops. ??? Gargling with a mixture of salt and water 3???4 times a day or as needed. To make salt water, completely dissolve ?1 tsp (3???6 g) of salt in 1 cup (237 mL) of warm water. ??? Sucking on hard candy or throat lozenges. ??? Putting a cool-mist humidifier in your bedroom at night to moisten the air. ??? Sitting in the bathroom with the door closed for 5???10 minutes while you run hot water in the shower. General instructions ??? Do not use any products that contain nicotine or tobacco. These products include cigarettes, chewing tobacco, and vaping devices, such as e-cigarettes. If you need help quitting, ask your health care provider. ??? Rest as told by your health care provider. ??? Drink enough fluid to keep your urine pale yellow. How is this prevented? To help prevent becoming infected or spreading infection: ??? Wash your hands often with soap and water for at least 20 seconds. If soap and water are not available, use hand environmental scientist. ??? Do not touch your eyes, nose, or mouth with unwashed hands, and wash hands after touching theseareas. ??? Do not share cups or eating utensils. ??? Avoid close contact with people who are sick. Contact a health care provider if: ??? You have large, tender lumps in your neck. ??? You have a rash. ??? You cough up green, yellow-brown, or bloody mucus. Get help right away if: ??? Your neck becomes stiff. ??? You drool or are unable to swallow liquids. ??? You cannot drink or take medicines without vomiting. ??? You have severe pain that does not go away, even after you take medicine. ??? You have trouble breathing, and it is not caused by a stuffy nose. ??? You have new pain and swelling in your joints such as the knees, ankles, wrists, or elbows. These symptoms may represent a serious problem that is an emergency. Do not wait to see if the symptoms will go away. Get medical help right away. Call your local emergency services (911 in the [place] Do not drive yourself to the hospital. Summary ??? Pharyngitis is redness, pain, and swelling (inflammation) of the throat (pharynx). ??? While pharyngitis can be caused by a bacteria, the most common causes are viral. ??? Most cases of pharyngitis get better on their own without treatment. ??? Bacterial pharyngitis is treated with antibiotic medicines. This information is not intended to replace advice given to you by your health care provider. Make sure you discuss any questions you have with your health care provider. Document Revised: 07/22/2021 Document Reviewed: 07/22/2021 [employer] Patient Education ?? 2022 [employer]. Follow Up Care 03/03/2024 17:33:53 With:Follow up with primary care provider Address:Unknown When:1 month Pharmacology Note * Aldair Herrera: PERFORM Event Display: Pharmacy Note Authored Date: [id number] TelePharmacy Home Medication List Update for Medication Reconciliation ??? Person Interviewed: patient ??? Quality of Interview/accuracy of medication list: fair ??? Sources used to compile medication list: ???[facility] medication list ???SureScripts ?? PCP/Specialist list ?? Retail pharmacy ?? Patient list ?? MAR ???Other - PDMP ??? Changes made to home medication list: o Additions: ??? Penicillin VK o Deletions: ??? Click or tap here to enter text. o Changes: ??? Click or tap here to enter text. ??? Additional Notes: o Pt reports taking Focalin daily, however, Surescripts and PDMP show no fills for Focalin since 2022. ??? Recommended changes: o Click or tap here to enter text. The home medication list is now updated to the best of my knowledge and is ready to be reconciled by the provider. Please contact the TelePharmacy Medication Reconciliation Pharmacist at for any questions. Discharge instructions * Sophia Price RN: PERFORM Event Display: Discharge Instructions Authored Date: [id number] GOLDENFELICE :2005 Age:18 years Sex:Female Visit Date:03/03/2024 Primary Care Physician: Outside, Provider Hospital Discharge Instructions We would like to thank you for allowing us to assist you with your healthcare needs. The following includes patient education materials and information regarding your injury/illness. Your Next Steps Discharge Orders Discharge Activity Restrictions, Other (please specify):, Caution with physical activity until Alexandria-Harper test is resulted Discharge Diet Instruction, Other (please specify), Soft foods until recovered from your tonsillectomy Follow Up Appointments Follow Up with??Follow up with primary care provider When:??Within 1 month The Following Services Have Been Arranged for You Special Serv & Comm Res, Anticipated - None Special Services and Community Resources - None Medications What How Much When Instructions Next Dose Unchanged dexmethylphenidate (Focalin) Unchanged penicillin V potassium (penicillin V potassium 500 mg oral tablet) 1 tab Oral (given by mouth) Every 8 hours Duration: 10 Days Your Summary Your Care Team Admitting Physician - Scott Sandra PA-C Attending Physician - Alfie Curran DO Primary Care Physician - Outside, Provider Your Diagnosis Airway obstruction Strep pharyngitis Enlarged tonsils Monospot test positive ADHD Discharge Vitals Temperature??(Temporal Artery) 97.0 ??F (36.1 ??C) Heart Rate??(Peripheral) 44 Respiratory Rate?? 18 Blood Pressure?? 108/68?? SpO2?? 100% Height?? 66.93 in (170 cm) Weight?? 168.02 lb (76.2 kg) BMI?? 26.37 Education Materials Pharyngitis Pharyngitis is inflammation of the throat (pharynx). It is a very common cause of sore throat. Pharyngitis can be caused by a bacteria, but it is usually caused by a virus. Most cases of pharyngitis get better on their own without treatment. What are the causes? This condition may be caused by: ? Infection by viruses (viral). Viral pharyngitis spreads easily from person to person (is contagious) through coughing, sneezing, and sharing of personal items or utensils such as cups, forks, spoons,and toothbrushes. ? Infection by bacteria (bacterial). Bacterial pharyngitis may be spread by touching the nose or faceafter coming in contact with the bacteria, or through close contact, such as kissing. ? Allergies. Allergies can cause buildup of mucus in the throat (post-nasal drip), leading to inflammation and irritation. Allergies can also cause blocked nasal passages, forcing breathing through themouth, which dries and irritates the throat. What increases the risk? You are more likely to develop this condition if: ? You are 5???24 years old. ? You are exposed to crowded environments such as daycare, school, or dormitory living. ? You live in a cold climate. ? You have a weakened disease-fighting (immune) system. What are the signs or symptoms? Symptoms of this condition vary by the cause. Common symptoms of this condition include: ? Sore throat. ? Fatigue. ? Low-grade fever. ? Stuffy nose (nasal congestion) and cough. ? Headache. Other symptoms may include: ? Glands in the neck (lymph nodes) that are swollen. ? Skin rashes. ? Plaque-like film on the throat or tonsils. This is often a symptom of bacterial pharyngitis. ? Vomiting. ? Red, itchy eyes (conjunctivitis). ? Loss of appetite. ? Joint pain and muscle aches. ? Enlarged tonsils. How is this diagnosed? This condition may be diagnosed based on your medical history and a physical exam. Your health careprovider will ask you questions about your illness and your symptoms. A swab of your throat may be done to check for bacteria (rapid strep test). Other lab tests may also be done, depending on the suspected cause, but these are rare. How is this treated? Many times, treatment is not needed for this condition. Pharyngitis usually gets better in 3???4 days without treatment. Bacterial pharyngitis may be treated with antibiotic medicines. Follow these instructions at home: Medicines ? Take zhti-lxj-slxuspw and prescription medicines only as told by your health care provider. ? If you were prescribed an antibiotic medicine, take it as told by your health care provider. Do notstop taking the antibiotic even if you start to feel better. ? Use throat sprays to soothe your throat as told by your health care provider. ? Children can get pharyngitis. Do not give your child aspirin because of the association with Maximiliano'ssyndrome. Managing pain To help with pain, try: ? Sipping warm liquids, such as broth, herbal tea, or warm water. ? Eating or drinking cold or frozen liquids, such as frozen ice pops. ? Gargling with a mixture of salt and water 3???4 times a day or as needed. To make salt water, completely dissolve ?1 tsp (3???6 g) of salt in 1 cup (237 mL) of warm water. ? Sucking on hard candy or throat lozenges. ? Putting a cool-mist humidifier in your bedroom at night to moisten the air. ? Sitting in the bathroom with the door closed for 5???10 minutes while you run hot water in the shower. General instructions ? Do not use any products that contain nicotine or tobacco. These products include cigarettes, chewing tobacco, and vaping devices, such as e-cigarettes. If you need help quitting, ask your health careprovider. ? Rest as told by your health care provider. ? Drink enough fluid to keep your urine pale yellow. How is this prevented? To help prevent becoming infected or spreading infection: ? Wash your hands often with soap and water for at least 20 seconds. If soap and water are not available, use hand environmental scientist. ? Do not touch your eyes, nose, or mouth with unwashed hands, and wash hands after touching these areas. ? Do not share cups or eating utensils. ? Avoid close contact with people who are sick. Contact a health care provider if: ? You have large, tender lumps in your neck. ? You have a rash. ? You cough up green, yellow-brown, or bloody mucus. Get help right away if: ? Your neck becomes stiff. ? You drool or are unable to swallow liquids. ? You cannot drink or take medicines without vomiting. ? You have severe pain that does not go away, even after you take medicine. ? You have trouble breathing, and it is not caused by a stuffy nose. ? You have new pain and swelling in your joints such as the knees, ankles, wrists, or elbows. These symptoms may represent a serious problem that is an emergency. Do not wait to see if the symptoms will go away. Get medical help right away. Call your local emergency services (911 in the [place] Do not drive yourself to the hospital. Summary ? Pharyngitis is redness, pain, and swelling (inflammation) of the throat (pharynx). ? While pharyngitis can be caused by a bacteria, the most common causes are viral. ? Most cases of pharyngitis get better on their own without treatment. ? Bacterial pharyngitis is treated with antibiotic medicines. This information is not intended to replace advice given to you by your health care provider. Make sure you discuss any questions you have with your health care provider. Document Revised: 07/22/2021 Document Reviewed: 07/22/2021 [employer] Patient Education ?? 2022 [employer]. Patient/Coal Washer Tender Signature Patient Name:FELICE GOLDEN I have received this information and my questions have been answered. Patient/Coal Washer Tender Name: Patient/Coal Washer Tender Signature: Relationship to Patient: Witness Name/Signature: Date: Electronically Signed on: 03/04/2024 12:08 EDTSigned by:CITLALI lunch counter manager Note * Madonna Laura RN: PERFORM Event Display: Case Management Note Authored Date: [id number] Review Summary [employer]?? Review Summary ??? Criteria Status:??Observation Met ??? Criteria Product:??LOC:Acute Adult ??? Criteria Subset:??Infection: General ??? Criteria Version:??Inter[employer]?? 2023 Release ??? Created By:??Madonna Laura ??? Created Date:??03/03/2024, 10:02 PM EDT ??? Review Status:??In Primary ??? Completed Date: ??? Facility:??[facility] ??? Length of Stay:??None selected Utilization Benchmarks Select Day,??One: Initial review,??One: OBSERVATION,? One: Dengue actual or suspected and,? One: Mononucleosis and,??Both: Impaired swallowing Inadequate oral intake Respiratory therapy Hospital Progress note * Dinah Trejo PROJECT TECHNICIAN: PERFORM Event Display: Respiratory Therapy Progress Note Authored Date: [id number] 1755: Received pt in ED w/ complaint of sore throat. Pt w/ known enlarged tonsils. Pt on RA SPO2 97%, HR 93, RR 18 equal and nonlabored. Pt states she does have some SOB. BBS clear, no stridor present. Pt received X1 racemic epi, tolerated well with no adverse reactions noted. Pt also received Decadron at this time. During tx pt states her breathing felt worse and she felt more dizzy and tingly. RN now bedside to assess pt, determined it was a normal side effect of the two meds given. Pt statesshe still does feel a little worse post tx. BBS and upper airway clear post tx w/ no stridor noted.Pt likely panicked due to the tingling, did calm down after the neb was done. pt denies any needs and is in no acute resp distress at this time. Electronically Signed on 03/03/2024 18:19 EDT Dinah TrejoP * Dinah Trejo PROJECT TECHNICIAN: PERFORM Event Display: Respiratory Therapy Progress Note Authored Date: [id number] 1900: Pt remains on RA w/ SPO2 in the high 90s. Respirations equal and nonlabored. Pt eating a popsicle and talking in full sentences in no acute distress. Pt denies any needs and is in no resp distress at this time. Electronically Signed on 03/03/2024 19:29 EDT Dinah Trejo PROJECT TECHNICIAN * Dinah Trejo PROJECT TECHNICIAN: PERFORM Event Display: Respiratory Therapy Progress Note Authored Date: [id number] 0546: Received pt awake and alert in bed. Pt on RA SPO2 100%, HR 49, RR 16 equal and nonlabored. BBS clear, clear upper airway, no noted stridor. Pt denies SOB. Pt denies home use of O2, CPAP/BIPAP, and resp meds. Pt in no acute resp distress at this time. Pt to let RT/Rn know if she has any SOB. Electronically Signed on 03/04/2024 05:49 EDT Dinah Trejo PROJECT TECHNICIAN * Dinah Trejo PROJECT TECHNICIAN: PERFORM Event Display: Respiratory Therapy Progress Note Authored Date: [id number] Respiratory Aerosol Therapy Assessment and Scoring Home Medication Routine: none Lung History (0) No Lung History and Non-Smoker Breath Sounds (0) Clear in all moore Respiratory Rate (0) Less than or equal to 18 Modified Remberto Scale or Observed Dyspnea (0) None Oxygen Therapy (0) Room air, at baseline home O2, post-op, or CHF Home Respiratory Medications (0) None Inhaler Use Assessment ? Clinically Stable? Yes? Can take a slow deep breath on command? Yes? Can perform a 3 second breath hold? Yes Respiratory total score: 0 Respiratory Guidelines 0-2 pts - No Therapy indicated Electronically Signed on 03/04/2024 06:32 EDT Neil, Dinah R [facility] Physician Emergency department Note * Sage Cesar MD: PERFORM Event Display: ED Note Physician Authored Date: [id number] FELICE GOLDEN :2005 Age:18 years Sex:Female Visit Date:03/03/2024 Primary Care Physician: Outside, Provider Basic Information Time Seen: Sage Cesar MD / 03/03/2024 17:40 Chief Complaint My tonsils are coming out March 13, and I just can't breathe right now. PT talking in triage,but states I feel like they are spasms, it was after eating pizza History Of Present Illness: Presenting concerns difficulty breathing. ??Context is patient who has had enlarged tonsils x 4 years.?? He had a recent strep infection??treated with antibiotics x 10 days. ??Last antibiotic administration was 2 days prior.?? Today??she had an episode of shortness of breath??in which she could not function.?? No cyanosis.?? No syncope.?? Episodes last about 2 minutes. ??She has had 4 episodes??over the past??hours. Review of Systems: Otherwise negative Physical Exam Vitals & Measurements T:??37.0?C ??(Temporal Artery)?? HR:??82??(Peripheral)?? RR:??18?? BP:??120/82?? SpO2:??97%?? HT:??170??cm?? WT:??70.3??kg??(Estimated)?? BMI:??24.33?? O2 Therapy:??Room air?? Tonsils are enlarged and touching in midline.?? No active purulence Medical Decision Making: Problem complexity is high. ??Data complexity is??moderate. ??Risk of management are high.?? [facility] coding 78680??patient signed out to care of Dr. Proctor. Procedure No Qualifying Data Assessment/Plan 1.??Airway obstruction??J98.8 2.??Strep pharyngitis??J02.0 3.??Mononucleosis syndrome??B27.90 4.??Enlarged tonsils and adenoids??J35.3 Orders: Unasyn, 3 g = 1 EA, IV Piggyback, Powder-Inj, every 6 hr, Antibiotic Indication Other (specify in order comments), First Dose: 03/03/24 18:43:00 EDT, STAT, 200 mL/hr .Manual Differential (NCTY), Blood, Stat, Collected, 03/03/24 17:59:55 EDT, Once, Nurse collect, [id number] Medication Reconciliation Unchanged dexmethylphenidate (Focalin) Problem List/Past Medical History Ongoing No qualifying data Historical No qualifying data Medication Administration Given dexamethasone, 10 mg, IV Push racepinephrine 2.25% inhalation solution, 1 EA, Inhale Allergies Keflex Social History Alcohol Never Electronic Cigarette/Vaping Electronic Cigarette Use: Never. Substance Use Never Tobacco Never tobacco user Tobacco Use:. Lab Results CBC and Differential?? LATEST RESULTS?? WBC?? 03/03/24 17:59?? 19.4 ??High?? RBC?? 03/03/24 17:59?? 4.2?? Hgb?? 03/03/24 17:59?? 11.7 ??Low?? Hct?? 03/03/24 17:59?? 36.0 ??Low?? MCV?? 03/03/24 17:59?? 84.9?? MCH?? 03/03/24 17:59?? 27.6?? MCHC?? 03/03/24 17:59?? 32.5?? RDW-CV?? 03/03/24 17:59?? 12.8?? Platelets?? 03/03/24 17:59?? 390?? Slide Review?? 03/03/24 17:59?? Man Diff? Infectious Disease?? LATEST RESULTS?? Mononucleosis Screen?? 03/03/24 17:59?? Positive Abnormal?? Strep A -IDNOW?? 03/03/24 17:59?? Detected Abnormal? Electronically Signed on 03/03/2024 18:48 EDT Sage Cesar MD History and physical note * Scott Sandra PA-C: PERFORM Event Display: History and Physical Authored Date: [id number] FELICE GOLDEN :2005 Age:18 years Sex:Female Visit Date:03/03/2024 Primary Care Physician: Outside, Provider Chief Complaint My tonsils are coming out March 13, and I just can't breathe right now. PT talking in triage,but states I feel like they are spasms, it was after eating pizza History of Present Illness This is a 18 year old female patient with past medical history significant for ADHD who presented to the emergency department on 03/03/24 for evaluation of shortness of breath. Patient reported she was diagnosed with strep throat last Tuesday02/26/24 at [facility] and was prescribed penicillin. Patient reported she was beginning to feel better in fact her sore throat resolved. Patient reported she was eating pizza with her friends and was driving back home when she suddenly felt severe shortness of breath and pulled over to the side of the road. She reported she believes she stopped breathing completely at this time. She believed this event to be about 2 minutes long. Denies syncopal episode associated. She reported she got out of the car and put her arms aboveher head which seemed to help her shortness of breath at the time. Patient reported her friend tookover driving at this point and drove her directly to the emergency department for evaluation. She reported she had associated chest pain and nausea which has since resolved. She also reported associated headache, dizziness, and lightheadedness.? Patient reported that she has a history of enlarged tonsils. She reported she had an appointment scheduled on March 13 with ENT at [facility] to get her tonsils out.? Denied chest pain, vomiting, difficult swallowing, cough, fever, chills, dysuria, hematuria, changein bowel habits, abdominal pain.? 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 Denied alcohol use, tobacco use, vaping, or marijuana use.? On arrival to the emergency department patient was pink warm and dry, without cyanosis. Patient washemodynamically stable on arrival without oxygen supplementation requirements.?Reportedly she was quite short of breath requiring racemic epinephrine and IV dexamethasone. On physical exam patient bilateral tonsils were very enlarged and touching in the midline.? Workup in the emergency department significant for elevated white blood cell count 19.4, wutvbdicro84.7, hematocrit 36.0, platelets 390. Mononucleosis testing positive in the emergency department.??Strep A testing also positive in the emergency department. Negative COVID. ?? ED provider discussed case with ENT provider at [facility] who recommended admission and continuation of IV antibiotics. Did report would recommend treatment for strep pharyngitis prior to tonsillectomy. Patient would like to continue with tonsillectomy with known ENT provider at [facility].? In the emergency department patient received a total of 16 mg IV dexamethasone, 1 dose of racemic epinephrine, 1 albuterol treatment and 3g of IV unasyn.? Patient will be placed on the medical floor for further testing, treatment and evaluation of?airway obstruction due to tonsillitis, Step A, and mononucleosis.? CODE STATUS: FULL CODE Review of Systems Constitutional:?No??fevers,?No??chills,?No??sweats Eye:?No??recent visual problems ENT:?No??ear pain,?No??nasal congestion,?No??sore throat Respiratory:?No??shortness of breath,?No??cough Cardiovascular:?No??Chest pain,?No??palpitations,?No??syncope Gastrointestinal:?Nonausea,?No??vomiting,?No??diarrhea Genitourinary:?No??hematuria Sanju/Lymph:?No??bruising tendency,?No??swollen lymph glands Endocrine:?No??excessive thirst,??No??excessive hunger Musculoskeletal:??No??back pain,??No??neck pain,??No??joint pain,??No??muscle pain,??No??decreased range of motion Integumentary:?No??rash,?No??pruritus,?No??abrasions Neurologic: Alert & oriented X 4 Psychiatric:?No??anxiety,?No??depression Physical Exam Vitals & Measurements T:??37.0?C ??(Temporal Artery)?? HR:??82??(Peripheral)?? RR:??18?? BP:??120/82?? SpO2:??97%?? HT:??170??cm?? WT:??70.3??kg??(Estimated)?? BMI:??24.33?? O2 Therapy:??Room air?? General: Alert and oriented, well nourished,?No??acute distress Eye: PERRL, EOMI,?Normal?conjunctiva HENT: Normocephalic,?Normal? hearing, moist oral mucosa,?No??scleral icterus,?No??sinustenderness, general erythematous pharynx with bilateral tonsillar enlargement?? Neck: Supple, non-tender,?No??carotid bruits,?No??JVD,?Positive for??lymphadenopathy Lungs:??Clear to auscultation?? Respiration:??Non-Labored Heart:?Normal? rate,?Regular??rhythm,?No??murmur,?No??gallop,?No??edema Abdomen: Soft, non-tender, non-distended,?Normal? bowel sounds,?No??masses Musculoskeletal:?Normal? range of motion and strength,?No??tenderness,?No??swelling Skin: Skin is warm, dry and pink,?No??rashes,?No??lesions Neurologic: Awake, alert and oriented X4, CN II-XII grossly intact Psychiatric: Cooperative, appropriate mood and affect Assessment/Plan 1.??Airway obstruction??J98.8 Airway obstruction likely multifactorial with known enlarged tonsils, as well as strep pharyngitis and new mononucleosis diagnosis Was treated with high dose corticosteroids IV in the emergency department with improved the swelling of bilateral tonsils Will observe patient overnight due to the severity of shortness of breath and tonsillar enlargement Continue supportive care?? Full liquid diet ordered, patient tolerating liquids in the emergency department?? Continue to monitor pulse oximetry?? Continue to monitor closely 2.??Strep pharyngitis??J02.0 Was recently diagnosed with strep throat at [facility] and prescribed penicillin?? Likely penicillin was not effective for strep as she continues to be positive today in the emergency department Will continue with 3g IV Unasyn q6 hours?? Continue pain control and fever control as needed with tylenol and ibuprofen?? 3.??Mononucleosis syndrome??B27.90 Positive for mono in the emergency department?? 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 Continue Focalin as prescribed.?? Orders: Sodium Chloride 0.9% 1,000 mL, Total Volume (mL): 1,000, 1,000 mL, Soln-IV, IV, 75 mL/hr, Start Date: 03/03/24 22:47:00 EDT, Populate Charting Weight From Order PSO Place in Observation, Observation, Observation, Alfie Curran DO, 03/03/24 21:57:00 EDT, 03/03/24 21:57:00 EDT, 03/03/24 21:57:00 EDT, 1 midnight or less Problem List/Past Medical History Ongoing No qualifying data Historical No qualifying data Medications Inpatient acetaminophen, 650 mg= 2 tab, Oral, every 6 hr, PRN bisacodyl, 10 mg= 1 supp, Rectal, Daily, PRN Fleet Enema, 1 EA, Rectal, Daily, PRN lidocaine 1% injectable solution, 1 mg= 0.1 mL, Intradermal, As Directed, PRN LORazepam, 0.5 mg= 1 tab, Oral, every 6 hr, PRN Mylanta, 15 mL, Oral, every 6 hr, PRN Narcan, 0.4 mg= 1 mL, IV Push, Once, PRN Normal Saline Flush, 10 mL, IV Push, every 12 hr (laurie) ondansetron, 4 mg= 2 mL, IV Push, every 6 hr, PRN pantoprazole, 40 mg= 1 EA, IV Push, Daily polyethylene glycol 3350, 17 g= 1 packets, Oral, Daily, PRN Sodium Chloride 0.9% 1,000 mL, 1000 mL, IV Sodium Chloride 0.9% 1,000 mL, 1000 mL, IV Unasyn Home Focalin penicillin V potassium 500 mg oral tablet, 500 mg= 1 tab, Oral, every 8 hr Allergies Keflex Social History Alcohol Never Electronic Cigarette/Vaping Electronic Cigarette Use: Never. Substance Use Never Tobacco Never tobacco user Tobacco Use:. Lab Results Test Name Test Result Date/Time WBC 19.4 x10^3/mcL 03/03/2024 17:59 EDT RBC 4.2 x10^6/mcL 03/03/2024 17:59 EDT Hgb 11.7 g/dL 03/03/2024 17:59 EDT Hct 36.0 % 03/03/2024 17:59 EDT MCV 84.9 fL 03/03/2024 17:59 EDT MCH 27.6 pg 03/03/2024 17:59 EDT MCHC 32.5 g/dL 03/03/2024 17:59 EDT RDW-CV 12.8 % 03/03/2024 17:59 EDT Platelets 390 x10^3/mcL 03/03/2024 17:59 EDT Segs Man 85 % 03/03/2024 17:59 EDT Lymph Man 10 % 03/03/2024 17:59 EDT [place] Man 5 % 03/03/2024 17:59 EDT Eos Man 0 % 03/03/2024 17:59 EDT Baso Man 0 % 03/03/2024 17:59 EDT Band Man 0 % 03/03/2024 17:59 EDT Abs Neut Man 16.5 x10^3/mcL 03/03/2024 17:59 EDT RBC Morph Normal 03/03/2024 17:59 EDT Slide Review Man Diff 03/03/2024 17:59 EDT Sodium Level 142 mmol/L 03/03/2024 17:59 EDT Potassium Level 3.8 mmol/L 03/03/2024 17:59 EDT Chloride Level 102 mmol/L 03/03/2024 17:59 EDT CO2 28 mmol/L 03/03/2024 17:59 EDT BUN 14 mg/dL 03/03/2024 17:59 EDT Glucose Level 85 mg/dL 03/03/2024 17:59 EDT Creatinine Level 0.97 mg/dL 03/03/2024 17:59 EDT eGFR AA 86 03/03/2024 17:59 EDT eGFR Non-AA 86 03/03/2024 17:59 EDT Calcium Level 9.7 mg/dL 03/03/2024 17:59 EDT Mononucleosis Screen Positive 03/03/2024 17:59 EDT Strep A -IDNOW Detected 03/03/2024 17:59 EDT SARS-CoV-2 (COVID-19) RNA (ID Now) Not Detected 03/03/2024 22:20 EDT Electronically Signed on 03/03/2024 22:50 EDT Scott Sandra PA-C Alfie Curran DO Discharge summary * Alfie Curran DO: PERFORM, MODIFY Event Display: Discharge Summary Authored Date: [id number] FELICE GOLDEN :2005 Age:18 years Sex:Female Visit Date:03/03/2024 Primary Care Physician: Outside, Provider Hospital Course Discharge Summary ?? Date of admission:??03/03/2024 ?? Date of discharge:??03/04/2024 ?? Discharge diagnoses:??Strep throat;??obstructive tonsillitis;??question of EBV ?? Consultations:??ENT at [facility]??(usual ENT is Dr. Jerod Scott at [facility]) ?? Operations/procedures:??None ?? Microbiology:??None ?? Code Status:??Full code ?? Summary of presentation and course ?? 18-year-old woman with ADHD and enlarged tonsils who has been under treatment for strep throat withpenicillin and presented to the emergency room last night with reported acute airway obstruction secondary to food texture intolerance. ?? Reportedly she had eaten a piece of pizza and then become acutely short of breath.?? She was feeling fine before that and seems to be back to her baseline now. ?? ENT was consulted at [facility] and felt she should be on IV antibiotics which she has had overnightwith Unasyn. ?? She did test positive for strep throat once again. ?? She also had a positive Monospot.?? She reports a history of [place]-Harper virus as a sophomore in high school, now 4 years ago. ?? Confirmatory testing with EBV IgM and IgG is pending, that this is a send out test. ?? 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 She has??neutrophilia but??no lymphocytosis. ?? She is feeling quite well this morning.?? She was given her fourth dose of Unasyn before discharge but as she is anxious to get home, will not keep her longer.?? She was given 1 dose of Solu-Medrol in the emergency department??but will??not continue that. ?? Disposition: Discharge to home under her own recognizance.?? She will continue the course of penicillin that she started 1 week ago.?? I will follow-up with her as she has no local physician on the results of the [place]-Harper test. ?? She will follow-up with Dr. Newsome of ENT regarding her tonsillectomy which is planned on March 13.??She knows to return to the emergency department if there is resumption of her symptoms. ?? Greater than 30 minutes was spent on the day of discharge in coordinating care and arranging outpatient follow-up. Physical Exam Vitals & Measurements T:??36.1?C ??(Temporal Artery)?? TMIN:??36.1?C ??(Temporal Artery)?? TMAX:??37.0?C ??(Temporal Artery)?? HR:??44??(Peripheral)?? RR:??20?? BP:??108/68?? SpO2:??99%?? HT:??170??cm?? WT:??76.2??kg?? BMI:??26.37?? O2 Therapy:??Room air?? BSA:??1.9?? Social History Alcohol Current, Beer, 1-2 times per year Electronic Cigarette/Vaping Electronic Cigarette Use: Never. Substance Use Never Tobacco Never tobacco user Tobacco Use:. Discharge Plan 1.??Airway obstruction??J98.8 2.??Strep pharyngitis??J02.0 3.??Enlarged tonsils??J35.1 4.??Monospot test positive??B27.90 5.??ADHD??F90.9 Orders: Diet Order, 03/04/24 7:37:00 EDT, Custom (See Special Instructions), soft diet [place]-Harper Virus Profile, S SALAZAR, Blood, Add On, 03/04/24 8:20:00 EDT, Once, Lab Collect Procalcitonin, Blood, Add On, 03/04/24 9:12:00 EDT, Once, Lab Collect All Diagnoses This Visit Airway obstruction Strep pharyngitis Enlarged tonsils Monospot test positive ADHD Patient Education Pharyngitis Follow Up With When Contact Information Follow up with primary care provider Within 1 month Additional Instructions: Medication Reconciliation Unchanged dexmethylphenidate (Focalin) ?? penicillin V potassium (penicillin V potassium 500 mg oral tablet)1 tab Oral (given by mouth) every8 hours for 10 Days. Electronically Signed on 03/04/2024 10:36 EDT Alfie Curran DO Electronically Signed on 03/04/2024 10:46 EDT Alfie Curran DO Patient Care team information Care Team Personnel Name: Outside, Provider Position: No Access Member Role: Primary Care Physician Care Team Related Persons Name: ANNABELLE ASTUDILLO Name: BRITNEY GOLDEN Name: HERMELINDO HERRON Insurance Providers Guarantor name: FELICE GOLDEN Health Plan Information #: 1 Payer: [email or web address] [email or web address] Member Number: [id number] Policy Number: NA Health Plan Information #: 2 Payer: HEALTH [employer] P[employer] Member Number: [id number] Policy Number: NA
--- OUTSIDE RECORDS SUMMARY | 2024-04-26 10:12 | XMS_ITS | Referral Summary ---
Author Organization [facility] Address [address] [place] [address] Care Team Providers Care Electronic Assembler Group Leader Name Role Phone Unknown, Provider MD Primary Care Provider Unava ilable Encounters Date Type Department Care Team Description 03/14/2024 Lab Requisition [facility] Pathology & Laboratory [facility] [address] [place] [address] Som Newsome MD Encounter for other general examination 03/04/2024 Lab Requisition [facility] Pathology & Laboratory [address] [address] Outr Resulting Lab, Provider from Last 3 Months Social History Tobacco Use Types Packs/Day Years Used Date Smoking Tobacco: Never Assessed Comments Unknown Sex and Gender Information Value Date Recorded Sex Assigned at Not on file Legal Sex Female 12:15 EDT Gender Identity Not on file Sexual Orientation Not on file Plan of Treatment Not on file Procedures Procedure Name Priority Date/Time Associated Diagnosis Comments SURGICAL PATHOLOGY Today 03/13/2024 7: 45 EST Encounter for other general examination AL-JONES PANEL Routine 03/03/2024 17 :59 EDT from Last 3 Months Results * SURGICAL PATHOLOGY (03/13/2024 7:45 EST) Note to Patient The following pathology results have been interpreted by your pathologist and may be available to you before your health provider has had the opportunity to review them. Please allow time for your provider to receive these results and explore management options, if applicable. 03/16/2024 8:45 EST [facility] Final Diagnosis A. TONSIL, RIGHT, TONSILECTOMY: - Tonsil with reactive follicular hyperplasia. B. TONSIL, LEFT, TONSILECTOMY: - Tonsil with reactive follicular hyperplasia. 03/16/2024 8:45 [facility] Attestation By the signature below, the attending physician certifies that they have 1) personally conducted a gross and/or microscopic examination of the described specimen(s), and/or personally interpreted the results of laboratory testing of the described specimen(s), and 2) personally rendered or confirmed the above diagnosis. 03/16/2024 8:45 [facility] at 0845 Clinical History Enlarged tonsils 03/16/2024 8:45 [facility] Gross Description A. Received in formalin labelled with proper patient identification (initials W, R) and tonsil, right is a 3.6 x 2.4 x 1.6 cm ovoid palatine tonsil. The mucosal surface is smooth and pink-ware. Sectioning reveals lobulated, ware cut surfaces. No obvious masses identified. One retail customer service representative section is submitted in A1. B. Received in formalin labelled with proper patient identification (initials W, R) and left tonsil is a 3.8 x 3.2 x 1.4 cm irregular palatine tonsil. The mucosal surface smooth and ware-white. Sectioning reveals a lobulated, ware cut surfaces. No obvious masses identified. One retail customer service representative section is submitted in B1. CHENG QUIÑONEZ(ASCP) 03/14/2024 10:00 03/16/2024 8:45 [facility] Performing Lab [facility] 03/16/2024 8:45 [facility] Scanned Images 03/16/2024 8:45 [facility] Tissue SPECIMEN FROM TONSIL / Unknown 03/13/2024 7:45 EST 03/14/2024 9:00 EST Tissue specimen (specimen) SPECIMEN FROM TONSIL / Unknown 03/13/2024 7:45 EST 03/14/2024 9:00 EST us Somcarlita Newsome MD PATHOLOGY ORDERABLES Final Resul t [facility] [address] [place] [phone] * (ABNORMAL) AL-JONES PANEL (03/03/2024 17:59 EDT) EBV VCA IgM, Antibody Negative Negative 03/07/2024 10:23 EDT [facility] Comment:Absence of detectabl e VCA IgM antibodies. EBV VCA IgG, Antibody Positive(A) Negative 03/07/2024 10:23 EDT [facility] Comment:Presence of detectab le VCA IgG antibodies. EBNA IgG Antibody Positive(A) Negative 2023 10:23 EDT [facility] Comment:Presence of detectab le EBNA IgG antibodies. EBV Interpretation Results would indicate past infection with Al-Jones virus 03/07/2024 10:23 EDT [facility] Blood VENOUS BLOOD / Unknown 03/03/2024 17:59 EDT 03/05/2024 22:07 EDT us Provider Outr Resulting Lab IMMUNOLOGY AND SEROL OGY ORDERABLES Final Result [facility] [address] [place] [address] from Last 3 Months Insurance [employer] Care Teams Electronic Assembler Group Leader Relationship Specialty Start Date End Date Unknown, Provider, PCP - General 02/07/24
--- OUTSIDE RECORDS SUMMARY | 2024-04-26 10:12 | XMS_ITS | Clinical Summary ---
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 Name Role Phone Unknown, Provider MD Primary Care Provider Unava ilable Encounters Date Type Department Care Team Description 03/14/2024 Lab Requisition [facility] Pathology & Laboratory [facility] [address] [place] [address] Som Newsome MD Encounter for other general examination 03/04/2024 Lab Requisition [facility] & Laboratory [address] [address] Outr Resulting Lab, Provider from Last 3 Months Social History Tobacco Use Types Packs/Day Years Used Date Smoking Tobacco: Never Assessed Comments Unknown Sex and Gender Information Value Date Recorded Sex Assigned at Not on file Legal Sex Female 12:15 EDT Gender Identity Not on file Sexual Orientation Not on file Plan of Treatment Health Maintenance Due Date Last Done Comments Hepatitis C Screen 2003 Hepatitis B Vaccine (1 of 3 - 19+ 3-dose series) 10/30 COVID-19 Vaccine ( season) 2024 Procedures Procedure Name Priority Date/Time Associated Diagnosis [...] explore management options, if applicable. 03/16/2024 8:45 [facility] Final Diagnosis A. TONSIL, RIGHT, TONSILECTOMY: - Tonsil with reactive follicular hyperplasia. B. TONSIL, LEFT, TONSILECTOMY: - Tonsil with reactive follicular hyperplasia. 03/16/2024 8:45 [facility] Attestation By the signature below, the attending physician certifies that they have 1) personally conducted a gross and/or microscopic examination of the described specimen(s), and/or personally interpreted the results of laboratory testing of the described specimen(s), and 2) personally rendered or confirmed the above diagnosis. 03/16/2024 8:45 [facility] at 0845 Clinical History Enlarged tonsils 03/16/2024 8:45 [facility] Gross Description A. Received in formalin labelled with proper patient identification (initials W, R) and tonsil, right is a 3.6 x 2.4 x 1.6 cm ovoid palatine tonsil. The mucosal surface is smooth and pink-ware. Sectioning reveals lobulated, ware cut surfaces. No obvious masses identified. One member service representative section is submitted in A1. B. Received in formalin labelled with proper patient identification (initials W, R) and left tonsil is a 3.8 x 3.2 x 1.4 cm irregular palatine tonsil. The mucosal surface smooth and ware-white. Sectioning reveals a lobulated, ware cut surfaces. No obvious masses identified. One member service representative section is submitted in B1. CHENG QUIÑONEZ(ASCP) 03/14/2024 10:00 03/16/2024 8:45 [facility] Performing Lab [facility] 03/16/2024 8:45 [facility] Scanned Images 03/16/2024 8:45 [facility] Tissue SPECIMEN FROM TONSIL / Unknown 03/13/2024 7:45 EST 03/14/2024 9:00 EST Tissue specimen (specimen) SPECIMEN FROM TONSIL / Unknown 03/13/2024 7:45 EST 03/14/2024 9:00 EST us Som Lynch MD PATHOLOGY ORDERABLES Final Resul t [facility] [address] [place] [address] * (ABNORMAL) AL-JONES PANEL (03/03/2024 17:59 EDT) EBV VCA IgM, Antibody Negative Negative 03/07/2024 10:23 EDT [facility] Comment:Absence of detectabl e VCA IgM antibodies. EBV VCA IgG, Antibody Positive(A) Negative 03/07/2024 10:23 EDT [facility] Comment:Presence of detectab le VCA IgG antibodies. EBNA IgG Antibody Positive(A) Negative 2023 10:23 EDT [facility] Comment:Presence of detectab le EBNA IgG antibodies. 

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
[2024-04-26] MEDS: Ibuprofen 600 MG TAB PO (10:42)
[2024-04-26 11:09] VITALS: BP 121/78; PULSE 68; RESP 18; TEMP 37.1; O2SAT 99
== END 2024-04-26 11:09 | disposition home or self-care (01) ==
PROVIDERS: Emergency Provider Physician Assistant
DX: S20.211A Contusion of right front wall of thorax, initial encounter (principal); S50.11XA Contusion of right forearm, initial encounter; W01.198A Fall on same level from slipping, tripping and stumbling with subsequent striking against other object, initial encounter; Y93.89 Activity, other specified; Y92.488 Other paved roadways as the place of occurrence of the external cause
CPT/HCPCS: 99283; 71046; 71100; 73090